=== PATIENT | female | born 1985 | race American Indian/Alaskan Native ===

== ENCOUNTER 2018-09-18 21:10 | Emergency (ER) | payer OTHER ==
[2018-09-18 21:47] VITALS: BP 105/62; PULSE 82; RESP 20; TEMP 98.1
--- NOTE | 2018-09-18 21:52 | ED ---
Female Urogenital HPI - General Chief complaint: Urogenital Stated complaint: Female Time Seen by Provider: 09/18/18 21:50 Source: patient Mode of arrival: ambulatory Limitations: no limitations - History of Present Illness Initial comments: Reveals a previously healthy 33-year-old female presents the emergency department today for evaluation of vaginal yeast infection. Patient reports that last week she began experiencing some thick white discharge and a little bit of this of the genitalia. Patient presents similar to previous yeast infection. She been attempting to treat it with [id number] medications including AZO yeast plus pills and states that she tried to use Monistat but did not like the feeling of the cream so she wiped it off after 1 hours. I using these treatments patient reports that she's had continued pruritus and feels that the skin is getting macerated and uncomfortable which prompted her to come to the ER today. She reports that she is not diabetic she is not been on any recent antibiotics. She has no concern for sexually transmitted infections or . - Related Data Previous Rx's Medication Instructions Recorded Fluconazole [Diflucan] 150 mg PO ONCE #1 tab 09/18/18 Allergies Allergy/AdvReac Type Severity Reaction Status Date / Time No Known Allergies Allergy Unverified 09/18/18 22:01 Review of Systems ROS Statement: Those systems with pertinent positive or pertinent negative responses have been documented in the HPI. ROS Other: All systems not noted in ROS Statement are negative. Past Medical History Past Medical History: No Reported History History of Any Multi-Drug Resistant Organisms: None Reported Past Surgical History: Orthopedic Surgery Past Psychological History: No Psychological Hx Reported Smoking Status: Never smoker Past Alcohol Use History: None Reported Past Drug Use History: None Reported General Exam - General Exam Comments Initial Comments: Physical Exam GENERAL: Patient is well-developed and well-nourished. Patient is nontoxic and well- hydrated and is in no distress. HENT: Normocephalic, Atraumatic. EYES: PERRL, EOMI PULMONARY: Unlabored respirations. No audible rales rhonchi or wheezing was noted. CARDIOVASCULAR: There is a regular rate and rhythm without any murmurs gallops or rubs. ABDOMEN: Soft and nontender with normal bowel sounds. SKIN: Skin is clear with no lesions or rashes and otherwise unremarkable. : Normal external genitalia Skin chances consistent with vaginal candidiasis with satelite lesions, no herpetic lesions White discharge in vaginal vault, no purulent vaginal discharge or concern for STI No CMT NEUROLOGIC: Patient is alert and oriented x3. Moving all extremities spontaneously MUSCULOSKELETAL: Normal extremities with adequate strength and full range of motion. No lower extremity swelling or edema. No calf tenderness. PSYCHIATRIC: Normal psychiatric evaluation. Limitations: no limitations Limitations: no limitations Course Vital Signs 09/18/18 21:41 Temperature 98.1 F Pulse Rate 82 Respiratory 20 Rate Blood Pressure 105/62 O2 Sat by Pulse 98 Oximetry Medical Decision Making - Medical Decision Making She was seen and evaluated history was obtained from patient Patient presenting with concern for yeast infection that is not responded to [id number] treatment Physical exam is consistent with vaginal yeast infection Patient with no concern for sexual transmitted infections or urine is negative first dose of fluconazole was given in the emergency department patient was advised that she has persistent symptoms she can repeat her dose on Friday. I did offer the patient treatment for sexual transmitted infections are because she has no concern to declined treatment at this time. She was advised that she'll be notified of any positive results in the next 2-3 days All questions pertaining care were answered return parameters were discussed patient was discharged home in stable condition - Lab Data Lab Results 09/18/18 Range/Units 21:27 Urine HCG, Qual Not Detected (Not Detectd) Disposition Clinical Impression: Vaginitis Disposition: HOME SELF-CARE Condition: Stable Instructions (If sedation given, give patient instructions): Yeast Infection (ED) Prescriptions: Fluconazole [Diflucan] 150 mg PO ONCE #1 tab Is patient prescribed a controlled substance at d/c from ED?: No Referrals: None,Stated [Primary Care Provider] - 1-2 days
[2018-09-18] MEDS ORDERED: FLUCONAZOLE 150 MG TAB PO STA (22:00)
[2018-09-20 12:53] LABS: N. gonorrhoeae,PCR Negative (Neg,Equiv); Neisseria Source Cervix
== END 2018-09-18 23:51 | disposition home or self-care (01) ==
LOC: EC 21:10
DX: N76.0 Acute vaginitis (principal)
CPT/HCPCS: 81025; 87070; 87205; 87491; 87591; 87808; 99283